=== PATIENT | male | born 2000 | race Caucasian/White ===

== ENCOUNTER 2023-10-13 07:16 | Outpatient (CLI) | payer OTHER, SELFPAY ==
[2023-10-13 10:38] LABS: Cholesterol 170 mg/dL (200); Glucose 88 mg/dL (74-106); High Density Lipoprotein 65 mg/dL; Triglycerides 74 mg/dL; Very Low Density Lipoprotein 15 mg/dL (5-40)
== END 2023-10-13 23:59 | disposition home or self-care (01) ==
LOC: MTLAB 07:19
DX: Z00.00 Encounter for general adult medical examination without abnormal findings (principal)
CPT/HCPCS: 36415; 80061; 82947